=== PATIENT | male | born 1975 | race Caucasian/White ===

== ENCOUNTER → 2016-12-28 | Outpatient (CLI) | payer OTHER ==
[~2016-12-28] MED LIST: ACID CONTROLLER20 MG PO; ACTOPLUS PO; ALBUTEROL17 GM INH; APRESOLINE PO; ATORVASTATIN CA10 MG PO; BACTRIM DS TABL1 TA1 PO; BACTRIM DS TABL1 TA2 PO; CEFZIL500 MG PO; CLEOCIN PO; COREG12.5 M1 PO; COREG12.5 MG PO; FERRO-TIME325 MG PO; GLUCOPHAGE XR500 MG PO; GLUCOPHAGE500 MG PO; HYDRALAZINE HCL25 MG PO; HYDROCHLOROTHIA25 MG PO; HYDROMET SYRUP480 ML PO; IBUPROFEN PO; IRON1 TA1 PO; IRON325 ( 65 ) PO; K-DUR10 MEQ PO; KEFLEX500 M1 PO; LANTUS SOLOSTAR3 ML SQ; LANTUS100 U/ML; LANTUS100 U/ML SUBQ; LANTUS100 UNITS/; LASIX PO; LASIX20 MG PO; LASIX80 MG PO; LEVEMIR; LEVEMIR SUBQ; LIPITOR PO; LISINOPRIL PO; LOTREL 5/10 MG1 CAP PO; METOLAZONE PO; METOLAZONE5 MG PO; NEURONTIN100 MG PO; NO MEDICATIONS; NORVASC10 MG PO; NOVOLOG100 UNITS/ SUBQ; RAMIPRIL2.5 MG PO; ULTRAM PO; VITAMIN D 22000 UNIT PO; VITAMIN D-32000 UNIT PO; VOLTAREN50 MG PO; VOLTAREN75 MG PO; ZITHROMAX PO; ZOFRAN ODT4 MG/UDTAB SL; [UNRECOGNIZED DRUG - SUPPLY]
[2016-12-28 17:10] LABS: HEMATOCRIT 28.7 % (38.0-50.0); HEMOGLOBIN 9.1 gm/dL (13.0-16.0); MEAN CELL VOLUME 84.6 FL (83-96); MEAN CORPUSCULAR HEMOGLOBIN 26.7 PG (28-34); MEAN CORPUSCULAR HGB CONC 31.6 g/dL (30-36); MEAN PLATELET VOLUME 9.9 FL (6.5-11.5); RED BLOOD COUNT 3.39 X10e (3.90-5.60); RED CELL DISTRIBUTION WIDTH 14.6 % (11.0-15.5); WHITE BLOOD COUNT 8.9 X10e3 (4.0-10.5)
[2016-12-28 17:52] LABS: BUN/CREATININE RATIO 10.63; CALCIUM SERUM 7.1 mg/dL (8.4-10.2); CREATININE SERUM 7.9 mg/dL (0.6-1.4); GLOM FILT RATE Estimated 7.7 mL/min (>60); PHOSPHOROUS 7.7 mg/dL (2.5-4.6); POTASSIUM 4.8 mmol/L (3.5-5.1)
[2017-01-02 02:06] LABS: CALCIUM (PTHINTACT) 7.4 mg/dL (8.6-10.3); HEP B SURFACE AG Nonreactive (Nonreactive)
== END | disposition home or self-care (01) ==
LOC: CLAB 16:45
PROVIDERS: Internal Medicine Nephrology
DX: I12.9 Hypertensive chronic kidney disease with stage 1 through stage 4 chronic kidney disease, or unspecified chronic kidney disease (principal); N18.4 Chronic kidney disease, stage 4 (severe); D63.1 Anemia in chronic kidney disease
CPT/HCPCS: 36415; 80048; 82310; 82728; 83540; 83550; 83970; 84100; 85027; 87340